=== PATIENT | female | born 1970 | race Caucasian/White ===

== ENCOUNTER → 2017-11-02 | Outpatient (CLI) | payer MEDICARE, MEDICAID ==
[~2017-11-02] VITALS: Ht 154.9 cm; Wt 83.0 kg
[~2017-11-02] MED LIST: ALBU17AE16 IH; OXYCOTIN; PERCOCET
[2017-11-02 14:46] VITALS: BP 114/71
== END | disposition home or self-care (01) ==
LOC: SRCNTR 13:49
PROVIDERS: ATTEND Internal Medicine Critical Care Medicine
DX: J44.1 Chronic obstructive pulmonary disease with (acute) exacerbation (principal); I10 Essential (primary) hypertension; B18.2 Chronic viral hepatitis C; S32.009A Unspecified fracture of unspecified lumbar vertebra, initial encounter for closed fracture; F11.20 Opioid dependence, uncomplicated; X58.XXXA Exposure to other specified factors, initial encounter; Y93.89 Activity, other specified; Y92.89 Other specified places as the place of occurrence of the external cause; Y99.8 Other external cause status
CPT/HCPCS: G0463

== ENCOUNTER → 2017-11-02 | Outpatient (CLI) | payer MEDICARE, MEDICAID | END | disposition home or self-care (01) | LOC: RADPV 12:43 | PROVIDERS: ATTEND Internal Medicine Geriatric Medicine | DX: J44.9 Chronic obstructive pulmonary disease, unspecified (principal) | CPT/HCPCS: 71046 ==

== ENCOUNTER → 2018-06-07 | Outpatient (CLI) | payer MEDICARE, MEDICAID ==
[~2018-06-07] VITALS: Ht 154.9 cm; Wt 87.0 kg
[2018-06-07 13:50] VITALS: BP 150/82
== END | disposition home or self-care (01) ==
LOC: SRCNTR 13:28
PROVIDERS: ATTEND Internal Medicine Critical Care Medicine
DX: J44.1 Chronic obstructive pulmonary disease with (acute) exacerbation (principal); I10 Essential (primary) hypertension; B18.2 Chronic viral hepatitis C; F11.20 Opioid dependence, uncomplicated; S32.009A Unspecified fracture of unspecified lumbar vertebra, initial encounter for closed fracture; X58.XXXA Exposure to other specified factors, initial encounter; Y93.89 Activity, other specified; Y92.89 Other specified places as the place of occurrence of the external cause; Y99.8 Other external cause status; F17.200 Nicotine dependence, unspecified, uncomplicated
CPT/HCPCS: G0463

== ENCOUNTER → 2018-06-14 | Outpatient (CLI) | payer MEDICARE, MEDICAID | END | disposition home or self-care (01) | LOC: RESP 11:53 | PROVIDERS: ATTEND Internal Medicine Critical Care Medicine | DX: J44.1 Chronic obstructive pulmonary disease with (acute) exacerbation (principal) | CPT/HCPCS: 94010; 94726; 94727; 94729 ==

== ENCOUNTER → 2018-11-03 | Outpatient (CLI) | payer MEDICARE, MEDICAID | END | disposition home or self-care (01) | LOC: RADPV 11:01 | PROVIDERS: ATTEND Internal Medicine Geriatric Medicine | DX: M17.12 Unilateral primary osteoarthritis, left knee (principal) ==

== ENCOUNTER 2019-02-20 11:12 | Inpatient (IN) | payer MEDICARE, MEDICAID ==
[~2019-02-20] VITALS: Ht 154.9 cm; Wt 89.9 kg
[2019-02-20] MEDS ORDERED: TRILOGY IH (11:24)
[2019-02-20 12:34] LABS: BASOPHILS % (AUTO) 0.6 % (0.0-2.0); EOSINOPHILS % (AUTO) 2.5 % (1.0-6.0); HEMATOCRIT 40.9 % (36-46); HEMOGLOBIN 13.4 g/dL (12.0-16.0); LYMPHOCYTES # (AUTO) 1.9 K/uL (1.0-4.8); LYMPHOCYTES % (AUTO) 24.7 % (22.0-44.0); MEAN CORPUSCULAR HEMOGLOBIN 30.3 pg (26.0-34.0); MEAN CORPUSCULAR HGB CONC 32.7 G/dL (31.0-37.0); MEAN CORPUSCULAR VOLUME 93 fL (80-100); MONOCYTES # (AUTO) 0.4 K/uL (0.1-1.0); MONOCYTES % (AUTO) 5.9 % (2.0-9.0); NEUTROPHILS # (AUTO) 5.1 K/uL (1.8-7.7); NEUTROPHILS % (AUTO) 66.3 % (40.0-70.0); PLATELET COUNT (AUTO) 242 K/uL (150-450); RED BLOOD CELL COUNT(AUTO) 4.42 MIL/uL (4.00-5.20); RED CELL DISTRIBUTION WIDTH 13.5 % (11.5-14.5)
[2019-02-20 12:46] LABS: ANION GAP 6 mmol/L (8-16); CALCIUM, TOTAL 9.5 mg/dL (8.8-10.5); CARBON DIOXIDE 32 mmol/L (22-29); CHLORIDE 104 mmol/L (98-107); CREATININE 0.65 mg/dL (0.60-1.30); GLOMERULAR FILTR. RATE CALC > 60 mL/min (>60); GLUCOSE,RANDOM 97 mg/dL (70-110); POTASSIUM 4.2 mmol/L (3.5-5.1); SODIUM SERUM 142 mmol/L (136-145)
[2019-02-20 12:51] LABS: B-TYPE NATRIURETIC PEPTIDE 44 pg/mL (0-100); D-DIMER 0.64 mg/L FEU (0.00-0.50); INR 0.9 (0.9-1.1); PROTHROMBIN TIME 9.5 SEC (9.4-11.6)
[2019-02-20 12:59] LABS: ALANINE AMINOTRANSFERASE 53 U/L (12-78); ALBUMIN 3.6 g/dL (3.4-5.0); ALKALINE PHOSPHATASE 90 U/L (46-116); ASPARTATE AMINOTRANSFERASE 48 U/L (15-37); BILIRUBIN,TOTAL 0.4 mg/dL (0.1-1.0); HCG,QUANTITATIVE 1 mIU/mL (0-6); LIPASE 280 U/L (73-393); TOTAL PROTEIN, SERUM 7.1 g/dL (6.4-8.2)
[2019-02-20] MEDS ORDERED: OXYC20TA41 PO (12:59)
[2019-02-20] MEDS ORDERED: FLUT1BLS3 IH (12:59)
[2019-02-20] MEDS ORDERED: OXYC60TA7 PO (12:59)
[2019-02-20] MEDS ORDERED: ASPIRIN 325 MG TABLET PO ONE (13:00)
[2019-02-20] MEDS ORDERED: NITROGLYCERIN 0.4 MG SUBLINGUAL TABLET #25 SL ONE (13:00)
[2019-02-20 13:05] LABS: LACTIC ACID 0.8 mmol/L (0.4-2.0)
[2019-02-20 13:29] LABS: UREA NITROGEN, BLOOD 10 mg/dL (7-18)
[2019-02-20] MEDS ORDERED: IOVERSOL 350 MG/ML 150 ML VIAL ONE (14:57)
[2019-02-20] MEDS ORDERED: SODIUM CHLORIDE 0.9% 100 ML ONE (14:57)
[2019-02-20] MEDS ORDERED: ACETAMINOPHEN 500 MG TABLET PO PRN (15:30)
[2019-02-20] MEDS ORDERED: ALBUTEROL SULFATE 2.5 MG/0.5 ML NEB SOLUTION NEB PRN (15:45)
[2019-02-20] MEDS ORDERED: IPRATROPIUM BROMIDE 0.5 MG/2.5 ML NEB SOLUTION NEB PRN (15:45)
[2019-02-20] MEDS ORDERED: ONDANSETRON HCL 4 MG/2 ML VIAL IVP PRN (15:45)
[2019-02-20] MEDS ORDERED: ZOLPIDEM TARTRATE 5 MG TABLET PO PRN (15:45)
[2019-02-20] MEDS ORDERED: MAGNESIUM HYDROXIDE SUSPENSION 30 ML UDCUP PO PRN (15:45)
[2019-02-20] MEDS: MORPHINE SULFATE 2 MG/ML SYRINGE IVP PRN (15:53)
[2019-02-20 16:12] LABS: APPEARANCE,URINE CLEAR (CLEAR); BILIRUBIN,URINE NEGATIVE (NEGATIVE); GLUCOSE, URINE (UA) NEGATIVE (NEGATIVE); KETONES,URINE NEGATIVE (NEGATIVE); LEUKOCYTE ESTERASE ,URINE NEGATIVE (NEGATIVE); NITRATE,URINE NEGATIVE (NEGATIVE); OCCULT BLOOD,URINE NEGATIVE (NEGATIVE); PH,URINE 7.5 (5.0-8.0); PROTEIN,URINE NEGATIVE (NEGATIVE); UROBILINOGEN,URINE 0.2 mg/dL (<=1.0)
[2019-02-20 16:17] LABS: BACTERIA,URINE None Seen /HPF (None Seen); RBC,URINE None Seen /HPF (0-2); WBC,URINE None Seen /HPF (0-5)
[2019-02-20 17:26] VITALS: BP 117/73
[2019-02-20 19:48] VITALS: BP 146/81
[2019-02-20] MEDS: OxyCODONE HCL 10 MG ER TABLET PO SCH (20:16)
[2019-02-20] MEDS: OxyCODONE HCL 10 MG IR TABLET PO PRN (21:26)
[2019-02-20 22:04] LABS: THYROID STIMULATING HORMONE 1.07 uIU/mL (0.36-3.74)
[2019-02-20 23:27] VITALS: BP 128/74
[2019-02-21 03:39] VITALS: BP 122/73
[2019-02-21] MEDS: OxyCODONE HCL 10 MG IR TABLET PO PRN ×4 (03:41→23:53)
[2019-02-21 06:05] LABS: BASOPHILS % (AUTO) 0.3 % (0.0-2.0); EOSINOPHILS % (AUTO) 4.5 % (1.0-6.0); HEMATOCRIT 37.5 % (36-46); HEMOGLOBIN 12.2 g/dL (12.0-16.0); LYMPHOCYTES # (AUTO) 2.4 K/uL (1.0-4.8); LYMPHOCYTES % (AUTO) 36.8 % (22.0-44.0); MEAN CORPUSCULAR HEMOGLOBIN 30.1 pg (26.0-34.0); MEAN CORPUSCULAR HGB CONC 32.6 G/dL (31.0-37.0); MEAN CORPUSCULAR VOLUME 92 fL (80-100); MONOCYTES # (AUTO) 0.5 K/uL (0.1-1.0); MONOCYTES % (AUTO) 7.5 % (2.0-9.0); NEUTROPHILS # (AUTO) 3.3 K/uL (1.8-7.7); NEUTROPHILS % (AUTO) 50.9 % (40.0-70.0); PLATELET COUNT (AUTO) 217 K/uL (150-450); RED BLOOD CELL COUNT(AUTO) 4.06 MIL/uL (4.00-5.20); RED CELL DISTRIBUTION WIDTH 13.5 % (11.5-14.5)
[2019-02-21 06:40] LABS: ANION GAP 11 mmol/L (8-16); CALCIUM, TOTAL 9.3 mg/dL (8.8-10.5); CARBON DIOXIDE 31 mmol/L (22-29); CHLORIDE 105 mmol/L (98-107); CHOLESTEROL 132 mg/dL (131-200); CREATINE KINASE, TOTAL ONLY 46 U/L (26-192); CREATININE 0.65 mg/dL (0.60-1.30); FREE T4 (FREE THYROXINE) 1.11 ng/dL (0.76-1.46); GLOMERULAR FILTR. RATE CALC > 60 mL/min (>60); GLUCOSE,RANDOM 101 mg/dL (70-110); HDL CHOLESTEROL 65 mg/dL (40-60); LDL CHOL (CALC.) 59 mg/dL (0-130); POTASSIUM 3.9 mmol/L (3.5-5.1); SODIUM SERUM 147 mmol/L (136-145); THYROID STIMULATING HORMONE 2.21 uIU/mL (0.36-3.74); TRIGLYCERIDES 40 mg/dL (15-150); UREA NITROGEN, BLOOD 11 mg/dL (7-18)
[2019-02-21 07:37] VITALS: BP 109/64
[2019-02-21 07:39] LABS: HEMOGLOBIN A1C 5.4 % (4.5-6.2)
[2019-02-21 07:50] LABS: ERYTHROCYTE SEDIMENTATION RATE 4 MM/HR (0-20)
[2019-02-21] MEDS: ENOXAPARIN SODIUM 40 MG/0.4 ML PF SYRINGE SQ SCH (08:25)
[2019-02-21] MEDS: OxyCODONE HCL 10 MG ER TABLET PO SCH (08:25)
[2019-02-21] MEDS: MORPHINE SULFATE 2 MG/ML SYRINGE IVP PRN ×2 (11:22→18:36)
[2019-02-21 11:53] VITALS: BP 124/68
[2019-02-21] MEDS ORDERED: IPRATROPIUM BROMIDE 0.5 MG/2.5 ML NEB SOLUTION NEB PRN (15:00)
[2019-02-21] MEDS ORDERED: ALBUTEROL SULFATE 2.5 MG/0.5 ML NEB SOLUTION NEB SCH (15:00)
[2019-02-21 15:44] VITALS: BP 139/72
[2019-02-21] MEDS: MethylPREDNISolone SOD SUCC 125 MG/2 ML VIAL IVP SCH ×2 (18:36→23:47)
[2019-02-21 19:40] VITALS: BP 123/73
[2019-02-21] MEDS: OxyCODONE HCL 20 MG ER TABLET PO SCH (21:19)
[2019-02-21 23:00] VITALS: BP 103/77
[2019-02-22 04:18] VITALS: BP 115/61
[2019-02-22] MEDS: MethylPREDNISolone SOD SUCC 125 MG/2 ML VIAL IVP SCH ×2 (05:19→12:27)
[2019-02-22 05:48] LABS: ANION GAP 1 mmol/L (8-16); CALCIUM, TOTAL 9.6 mg/dL (8.8-10.5); CARBON DIOXIDE 32 mmol/L (22-29); CHLORIDE 104 mmol/L (98-107); CREATININE 0.71 mg/dL (0.60-1.30); GLOMERULAR FILTR. RATE CALC > 60 mL/min (>60); GLUCOSE,RANDOM 138 mg/dL (70-110); POTASSIUM 3.9 mmol/L (3.5-5.1); SODIUM SERUM 137 mmol/L (136-145); UREA NITROGEN, BLOOD 14 mg/dL (7-18)
[2019-02-22 05:49] LABS: BASOPHILS % (AUTO) 0.5 % (0.0-2.0); EOSINOPHILS % (AUTO) 0 % (1.0-6.0); HEMOGLOBIN 13.4 g/dL (12.0-16.0); LYMPHOCYTES # (AUTO) 0.7 K/uL (1.0-4.8); LYMPHOCYTES % (AUTO) 8.6 % (22.0-44.0); MEAN CORPUSCULAR HEMOGLOBIN 30.7 pg (26.0-34.0); MEAN CORPUSCULAR HGB CONC 33.5 G/dL (31.0-37.0); MEAN CORPUSCULAR VOLUME 92 fL (80-100); MONOCYTES # (AUTO) 0.1 K/uL (0.1-1.0); MONOCYTES % (AUTO) 0.8 % (2.0-9.0); NEUTROPHILS # (AUTO) 7.1 K/uL (1.8-7.7); PLATELET COUNT (AUTO) 245 K/uL (150-450); RED BLOOD CELL COUNT(AUTO) 4.36 MIL/uL (4.00-5.20); RED CELL DISTRIBUTION WIDTH 13.3 % (11.5-14.5)
[2019-02-22 05:50] LABS: NEUTROPHILS % (AUTO) 90.1 % (40.0-70.0)
[2019-02-22] MEDS: OxyCODONE HCL 10 MG IR TABLET PO PRN ×3 (05:50→16:28)
[2019-02-22 07:26] VITALS: BP 101/65
[2019-02-22] MEDS: ENOXAPARIN SODIUM 40 MG/0.4 ML PF SYRINGE SQ SCH (09:37)
[2019-02-22] MEDS: OxyCODONE HCL 20 MG ER TABLET PO SCH (09:37)
[2019-02-22] MEDS: MORPHINE SULFATE 2 MG/ML SYRINGE IVP PRN (09:43)
[2019-02-22 11:28] VITALS: BP 147/76
[2019-02-22] MEDS ORDERED: NICO-802 TD (15:50)
[2019-02-22] MEDS ORDERED: NICO-703 TD (15:51)
[2019-02-22] MEDS ORDERED: NICO-800 TD (15:55)
[2019-02-22] MEDS ORDERED: IBUP-2070 PO (15:56)
[2019-02-22] MEDS ORDERED: BENZONATATE 100 MG CAPSULE PO SCH (16:00)
[2019-02-22] MEDS ORDERED: PRED20 PO ×4 (16:01→16:03)
[2019-02-22] MEDS ORDERED: OxyCODONE HCL 20 MG ER TABLET PO SCH (21:00)
== END 2019-02-22 16:30 | disposition home or self-care (01) | DRG 191 ==
LOC: EMS 11:15 → 5N 16:20
PROVIDERS: ADMIT Internal Medicine Geriatric Medicine; ATTEND Internal Medicine Geriatric Medicine
DX: J44.1 Chronic obstructive pulmonary disease with (acute) exacerbation (principal); F11.20 Opioid dependence, uncomplicated; S32.009A Unspecified fracture of unspecified lumbar vertebra, initial encounter for closed fracture; E87.0 Hyperosmolality and hypernatremia; I10 Essential (primary) hypertension; B18.2 Chronic viral hepatitis C; G89.4 Chronic pain syndrome; F12.90 Cannabis use, unspecified, uncomplicated; X58.XXXA Exposure to other specified factors, initial encounter; F17.210 Nicotine dependence, cigarettes, uncomplicated; E66.9 Obesity, unspecified; B19.20 Unspecified viral hepatitis C without hepatic coma; K74.60 Unspecified cirrhosis of liver; M54.9 Dorsalgia, unspecified; R07.89 Other chest pain; C43.9 Malignant melanoma of skin, unspecified; Z80.3 Family history of malignant neoplasm of breast; Z79.899 Other long term (current) drug therapy; Z82.5 Family history of asthma and other chronic lower respiratory diseases; Z82.49 Family history of ischemic heart disease and other diseases of the circulatory system; Z88.1 Allergy status to other antibiotic agents; Y93.89 Activity, other specified; Y92.89 Other specified places as the place of occurrence of the external cause; Y99.8 Other external cause status; Z68.37 Body mass index [BMI] 37.0-37.9, adult
CPT/HCPCS: 71275; 80074; 82105; 83036; 83605; 83735; 84439; 84443; 85379; 85651; 86592; 87040; 93005; 93306; G0378; J1650; J2270; J2930; J7050